=== PATIENT | female | born 1945 | race Caucasian/White ===

== ENCOUNTER 2023-12-29 09:10 | Observation (INO) ==
[2023-12-29 10:04] LABS: Hematocrit 33.2 % (35-45); Hemoglobin 10.9 g/dL (11.5-14.3); Mean Corpuscular Hemoglobin 28.5 pg (27-33); Mean Corpuscular Volume 86.5 fL (80-97); Platelet Count 273 10^3/uL (150-450); Red Blood Count 3.84 10^6/uL (3.63-4.92); Red Cell Distribution Width 14.2 % (12-17); White Blood Count 11.1 10^3/uL (3.8-11.8)
[2023-12-29 10:34] LABS: Albumin 3.7 g/dL (3.2-5.2); Albumin/Globulin Ratio 1.5 (1-3); Calcium 9.1 mg/dL (8.6-10.3); Creatinine, Serum 0.46 mg/dL (0.51-0.95); Globulin 2.5 g/dL (2-4); Potassium 4.1 mmol/L (3.5-5.0); Total Bilirubin 0.3 mg/dL (0.2-1.0); Total Protein 6.2 g/dL (6.4-8.9); eGFR CKD-EPI 96.7 (>60)
[2023-12-29 10:48] LABS: INR 0.98 (0.85-1.14)
[2023-12-29 10:52] LABS: ABS Eosinophils 0.1 10^3/uL (0.0-0.5); ABS Lymphocytes 2.5 10^3/uL (1.0-4.8); ABS Monocytes 0.9 10^3/uL (0.0-0.9); ABS Neutrophils 7.6 10^3/uL (1.5-7.6); ABS Nucleated RBC 0.01 10^3/ul; Lymphocyte % 22.3 %
[2023-12-29 12:47] LABS: Hematocrit 28.4 % (35-45); Hemoglobin 9.7 g/dL (11.5-14.3); Mean Corpuscular Hemoglobin 29.6 pg (27-33); Mean Corpuscular Hgb Conc 34.1 g/dL (31-36); Mean Corpuscular Volume 86.9 fL (80-97); Mean Platelet Volume 7.8 fL (7.5-11.2); Platelet Count 238 10^3/uL (150-450); Red Blood Count 3.27 10^6/uL (3.63-4.92); White Blood Count 9.5 10^3/uL (3.8-11.8)
[2023-12-29] MEDS ORDERED: Iohexol 350 (CONTRAST) 500 ML MDV IV ONE (13:02)
[2023-12-29 13:16] LABS: ABS Eosinophils 0.1 10^3/uL (0.0-0.5); ABS Lymphocytes 2.5 10^3/uL (1.0-4.8); ABS Monocytes 0.8 10^3/uL (0.0-0.9); ABS Nucleated RBC 0.02 10^3/ul; Eosinophil % 0.9 %; Lymphocyte % 26.4 %; Nucleated Red Blood Cells % 0.2 %/100WBC (0.0-0.8)
[2023-12-29] MEDS ORDERED: Ondansetron 4 mg VIAL 2 MG/ML 2 ml VIAL IV PRN (15:15)
[2023-12-29] MEDS ORDERED: Polyethylene Glycol 3350 17 GM PACKET PO PRN (15:15)
[2023-12-29] MEDS ORDERED: Senna TAB 8.6 mg TAB PO PRN (15:15)
[2023-12-29 15:37] LABS: Hematocrit 28.5 % (35-45); Hemoglobin 9.9 g/dL (11.5-14.3); Mean Corpuscular Hemoglobin 29.8 pg (27-33); Mean Corpuscular Hgb Conc 34.6 g/dL (31-36); Mean Corpuscular Volume 86.2 fL (80-97); Mean Platelet Volume 7.8 fL (7.5-11.2); Platelet Count 229 10^3/uL (150-450); Red Blood Count 3.31 10^6/uL (3.63-4.92); Red Cell Distribution Width 14.1 % (12-17); White Blood Count 9.1 10^3/uL (3.8-11.8)
[2023-12-29] MEDS: MINERAL OIL ISOPROPYL MYRISTAT TOPICAL SCH (21:09)
[2023-12-30 00:52] LABS: Hematocrit 24.3 % (35-45); Hemoglobin 8.3 g/dL (11.5-14.3); Mean Corpuscular Hemoglobin 29.3 pg (27-33); Mean Corpuscular Volume 86.2 fL (80-97); Mean Platelet Volume 7.8 fL (7.5-11.2); Platelet Count 221 10^3/uL (150-450); Red Blood Count 2.82 10^6/uL (3.63-4.92); Red Cell Distribution Width 13.7 % (12-17); White Blood Count 8.8 10^3/uL (3.8-11.8)
[2023-12-30 06:21] LABS: Hematocrit 25.1 % (35-45); Hemoglobin 8.7 g/dL (11.5-14.3); Mean Corpuscular Hgb Conc 34.5 g/dL (31-36); Mean Corpuscular Volume 86.9 fL (80-97); Mean Platelet Volume 8.1 fL (7.5-11.2); Platelet Count 212 10^3/uL (150-450); Red Blood Count 2.88 10^6/uL (3.63-4.92); Red Cell Distribution Width 14.1 % (12-17); White Blood Count 7.4 10^3/uL (3.8-11.8)
[2023-12-31 08:26] LABS: Calcium 7.8 mg/dL (8.6-10.3); Creatinine, Serum 0.38 mg/dL (0.51-0.95); Potassium 4.5 mmol/L (3.5-5.0); eGFR CKD-EPI 101.2 (>60)
[2023-12-31 08:31] LABS: Hematocrit 17.5 % (35-45); Mean Corpuscular Hemoglobin 30.2 pg (27-33); Mean Corpuscular Hgb Conc 34.6 g/dL (31-36); Mean Corpuscular Volume 87.3 fL (80-97); Mean Platelet Volume 8.1 fL (7.5-11.2); Platelet Count 201 10^3/uL (150-450); Red Cell Distribution Width 14.7 % (12-17); White Blood Count 7.2 10^3/uL (3.8-11.8)
[2023-12-31] MEDS ORDERED: Morphine ORAL CONCENTRATE 5 MG/0.25 ML ORAL.SYRIN SL PRN (09:37)
[2023-12-31 10:23] VITALS: BP 131/76
[2023-12-31 10:24] LABS: ABS Eosinophils 0.1 10^3/uL (0.0-0.5); ABS Monocytes 0.7 10^3/uL (0.0-0.9); ABS Neutrophils 4.4 10^3/uL (1.5-7.6); Eosinophil % 0.7 %; Lymphocyte % 28.4 %
== END 2023-12-31 12:23 ==
LOC: EDHOLD 09:10 → ED 09:10 → SUATTDRO 15:15 → MEDTELE 15:55
PROVIDERS: ADMIT Internal Medicine; ATTEND Student in an Organized Health Care Education/Training Program